=== PATIENT | female | born 1990 | race Caucasian/White ===

== ENCOUNTER → 2022-10-19 | Day surgery (SDC) | payer SELFPAY ==
[2022-10-15 11:36] VITALS: BP 125/71
[~2022-10-19] VITALS: Ht 152.4 cm; Wt 59.0 kg
[~2022-10-19] MED LIST: ONE DAILY WITH1 EACH PO; PREDNISONE5 MG PO
[2022-10-19 10:30] VITALS: BP 106/64
[2022-10-19 14:55] VITALS: BP 107/68
[2022-10-19 15:09] VITALS: BP 111/65
[2022-10-19 15:25] VITALS: BP 105/63
[2022-10-19 15:39] VITALS: BP 113/71
[2022-10-19 15:55] VITALS: BP 114/59
== END | disposition home or self-care (01) ==
LOC: SDC 10-15 11:00
PROVIDERS: ATTEND Orthopaedic Surgery
DX: S72.454A Nondisplaced supracondylar fracture without intracondylar extension of lower end of right femur, initial encounter for closed fracture (principal); G82.20 Paraplegia, unspecified; G43.909 Migraine, unspecified, not intractable, without status migrainosus; W19.XXXA Unspecified fall, initial encounter; Y93.89 Activity, other specified; Y92.89 Other specified places as the place of occurrence of the external cause; Y99.8 Other external cause status

== ENCOUNTER → 2022-11-01 | Outpatient (CLI) | payer SELFPAY | END | disposition home or self-care (01) | LOC: ORTHO 01:08 | PROVIDERS: ATTEND Orthopaedic Surgery | DX: S72.454 Nondisplaced supracondylar fracture without intracondylar extension of lower end of right femur (principal); X58.XXXD Exposure to other specified factors, subsequent encounter ==

== ENCOUNTER → 2022-11-15 | Outpatient (CLI) | payer OTHER | LOC: RAD 13:52 | PROVIDERS: ATTEND Orthopaedic Surgery | DX: S72.454 Nondisplaced supracondylar fracture without intracondylar extension of lower end of right femur (principal); X58.XXXD Exposure to other specified factors, subsequent encounter ==

== ENCOUNTER → 2022-11-16 | Day surgery (SDC) | payer OTHER ==
[~2022-11-16] VITALS: Ht 152.4 cm; Wt 59.0 kg
[2022-11-16 07:00] VITALS: BP 94/61
[2022-11-16 08:15] VITALS: BP 84/44
[2022-11-16 08:30] VITALS: BP 96/54
[2022-11-16 08:45] VITALS: BP 100/55
[2022-11-16 09:00] VITALS: BP 106/53
== END | disposition home or self-care (01) ==
LOC: SDC 11-15 14:45
PROVIDERS: ATTEND Orthopaedic Surgery
DX: T84.9XXA Unspecified complication of internal orthopedic prosthetic device, implant and graft, initial encounter (principal); S72.454 Nondisplaced supracondylar fracture without intracondylar extension of lower end of right femur; X58.XXXD Exposure to other specified factors, subsequent encounter; Y82.8 Other medical devices associated with adverse incidents

== ENCOUNTER → 2022-11-29 | Outpatient (CLI) | payer OTHER | END | disposition home or self-care (01) | LOC: ORTHO 01:33 | PROVIDERS: ATTEND Orthopaedic Surgery | DX: S72.454 Nondisplaced supracondylar fracture without intracondylar extension of lower end of right femur (principal); X58.XXXD Exposure to other specified factors, subsequent encounter ==

== ENCOUNTER → 2022-12-30 | Outpatient (CLI) | payer OTHER | END | disposition home or self-care (01) | LOC: ORTHO 00:13 | PROVIDERS: ATTEND Orthopaedic Surgery | DX: S72.454 Nondisplaced supracondylar fracture without intracondylar extension of lower end of right femur (principal); X58.XXXD Exposure to other specified factors, subsequent encounter ==

== ENCOUNTER → 2023-01-24 | Outpatient (CLI) | payer OTHER | END | disposition home or self-care (01) | LOC: RAD 01:51 | PROVIDERS: ATTEND Orthopaedic Surgery | DX: M81.8 Other osteoporosis without current pathological fracture (principal) ==

== ENCOUNTER → 2023-02-18 | Outpatient (CLI) | payer OTHER | END | disposition home or self-care (01) | LOC: ORTHO 02-16 01:54 | PROVIDERS: ATTEND Orthopaedic Surgery | DX: S72.454 Nondisplaced supracondylar fracture without intracondylar extension of lower end of right femur (principal); M81.0 Age-related osteoporosis without current pathological fracture; X58.XXXD Exposure to other specified factors, subsequent encounter ==

== ENCOUNTER → 2023-04-20 | Outpatient (CLI) | payer OTHER | END | disposition home or self-care (01) | LOC: ORTHO 01:15 | PROVIDERS: ATTEND Orthopaedic Surgery | DX: S72.454 Nondisplaced supracondylar fracture without intracondylar extension of lower end of right femur (principal); X58.XXXD Exposure to other specified factors, subsequent encounter ==

== ENCOUNTER → 2024-11-26 | Outpatient (CLI) | payer OTHER ==
[2024-11-26 11:34] LABS: BILIRUBIN Negative (Negative); BLOOD Negative (Negative); CLARITY Clear (Clear); COLOR Yellow (Yellow); GLUCOSE Negative (Negative); KETONE Negative (Negative); LEUKO ESTERASE Negative (Negative); NITRITE Negative (Negative); PH 6.5 (4.5-8.0)
[2024-11-26 11:57] LABS: RBC 0-2 rbc/hpf (0-2)
== END | disposition home or self-care (01) ==
LOC: LAB 11:12
PROVIDERS: ATTEND Urology
DX: R35.0 Frequency of micturition (principal)

== ENCOUNTER → 2025-03-28 | Outpatient (CLI) | payer OTHER ==
[2025-03-28 10:11] LABS: MEAN CELL VOLUME 86.9 fl (81.0-99.0); MEAN CORPUSCULAR HGB 28.9 pg (27.0-31.0); MEAN PLATELET VOLUME 9.5 fl (9.6-12.3); NUCLEATED RED BLOOD CELL 0.0 % (0.0-0.0); NUCLEATED RED BLOOD CELL 0.0 10*3/uL (0.0-0.0); PLATELET COUNT AUTOMATED 203 10*3/uL (130-400); RED CELL DISTRI WIDTH 12.6 % (0-14.5)
[2025-03-28 10:14] LABS: MANUAL DIFF REFLEX YES
[2025-03-28 10:27] LABS: PLATELET SUFFICIENCY NORMAL (NORMAL)
[2025-03-28 10:35] LABS: BUN 12 mg/dl (9-23); LDL CHOLESTEROL 127 mg/dL (9-159); SGPT/ALT 49 U/L (5-49)
== END | disposition home or self-care (01) ==
LOC: LAB 09:41 → US 10:30
PROVIDERS: Nurse Practitioner Family; ATTEND Urology
DX: N31.9 Neuromuscular dysfunction of bladder, unspecified (principal); N32.89 Other specified disorders of bladder; Z13.1 Encounter for screening for diabetes mellitus; Z13.220 Encounter for screening for lipoid disorders; Z13.29 Encounter for screening for other suspected endocrine disorder; Z76.89 Persons encountering health services in other specified circumstances; G82.20 Paraplegia, unspecified

== ENCOUNTER → 2025-07-15 | Outpatient (CLI) | payer OTHER ==
[2025-07-15 16:29] LABS: BILIRUBIN Negative (Negative); BLOOD Negative (Negative); CLARITY Turbid (Clear); COLOR Yellow (Yellow); KETONE Negative (Negative); LEUKO ESTERASE 3+ (Negative); NITRITE Positive (Negative); SPECIFIC GRAVITY 1.020 (1.001-1.030); UROBILINOGEN 1.0 E.U./dl (0.0-1.0)
[2025-07-15 16:31] LABS: PH >= 9.0 (4.5-8.0)
[2025-07-15 16:39] LABS: BACTERIA 2+; TRIP PHOS CRYSTALS 3+
== END | disposition home or self-care (01) ==
LOC: LAB 13:24
PROVIDERS: ATTEND Urology
DX: R30.0 Dysuria (principal)